=== PATIENT | female | born 1990 | race Two or more races ===

== ENCOUNTER 2018-12-28 10:20 | Observation (INO) | payer MEDICAID ==
[~2018-12-28] VITALS: Ht 162.6 cm; Wt 110.2 kg
[2018-12-28] MEDS ORDERED: PREN-96 PO (10:58)
== END 2018-12-28 12:15 | disposition home or self-care (01) | DRG 566 ==
LOC: LDRP 10:20
PROVIDERS: ADMIT Obstetrics & Gynecology; ATTEND Obstetrics & Gynecology
DX: O48.0 Post-term pregnancy (principal); Z3A.40 40 weeks gestation of pregnancy
CPT/HCPCS: 59025; 76818; 81002; G0378

== ENCOUNTER 2018-12-30 19:06 | Observation (INO) | payer MEDICAID ==
[~2018-12-30] VITALS: Ht 162.6 cm; Wt 111.1 kg
[~2018-12-30 19:06] MED LIST: PREN-96 PO
== END 2018-12-30 20:40 | disposition home or self-care (01) | DRG 566 ==
LOC: LDRP 19:06
PROVIDERS: ADMIT Specialist; ATTEND Specialist
DX: O48.0 Post-term pregnancy (principal); O24.313 Unspecified pre-existing diabetes mellitus in pregnancy, third trimester; O46.93 Antepartum hemorrhage, unspecified, third trimester; Z3A.40 40 weeks gestation of pregnancy
CPT/HCPCS: 59025; 76818; 81002; G0378

== ENCOUNTER 2019-01-01 22:16 | Inpatient (IN) | payer MEDICAID ==
[~2019-01-01] VITALS: Ht 152.4 cm; Wt 110.2 kg
[2019-01-01] MEDS ORDERED: LACT. RINGERS/OXYTOCIN 20UNITS 1,000 ML IV SCH (22:46)
[2019-01-01] MEDS ORDERED: NALBUPHINE HCL 10 MG/1ml INJECTION IV PRN (23:00)
[2019-01-01] MEDS ORDERED: DERMOPLAST 60ML BOTTLE TOP PRN (23:00)
[2019-01-01] MEDS ORDERED: WITCH HAZEL-GLYCERIN PAD TOP PRN (23:00)
[2019-01-01] MEDS ORDERED: METHYLERGONOVINE MALEATE 0.2 MG/ML AMP IM PRN (23:00)
[2019-01-01] MEDS ORDERED: LIDOCAINE 2%HCL (LOCAL ANESTH.) INJ 20ML MDV ID ONE (23:00)
[2019-01-01] MEDS ORDERED: PHISODERM TOP SOLN 240ML BTL TOP PRN (23:00)
[2019-01-01] MEDS: LACTATED RINGER'S 1,000 ML IV SCH (23:50)
[2019-01-02] MEDS ORDERED: PENICILLIN G POT 5MIL/D5 50ML 50 ML IV ONE ×2 (00:30→04:15)
[2019-01-02 04:31] LABS: Albumin 2.8 g/dL (3.4-5.0); Alcohol, Urine < 3.0 mg/dL (0-5); Amphetamine Screen, Urine NEGATIVE (NEGATIVE); Barbiturate Scree,Urine NEGATIVE (NEGATIVE); Benzodiazephine Screen, Urine NEGATIVE (NEGATIVE); Bilirubin, Total 0.2 mg/dL (0.2-1.0); Calcium 8.8 mg/dL (8.5-10.1); Cannabinoid Screen, Urine NEGATIVE (NEGATIVE); Cocaine Screen, Urine NEGATIVE (NEGATIVE); Opiate Scree,Urine NEGATIVE (NEGATIVE); Phencyclidine Screen, Urine NEGATIVE (NEGATIVE); Potassium 3.6 mmol/L (3.5-5.1); Total Protein 7.4 g/dL (6.4-8.2)
[2019-01-02 04:32] LABS: Basophils # (auto) 0 uL; Basophils % (auto) 0.4 % (0.0-2.0); Eosinophils # (auto) 0.2 uL; Eosinophils % (auto) 2.1 % (0.0-7.0); Hematocrit 37.4 % (36.0-46.0); Hemoglobin 12.4 g/dL (12.2-16.2); Lymphocytes # (auto) 2.4 uL; Lymphocytes % (auto) 23.2 % (10.0-50.0); Mean Corpuscular Hgb Conc. 33.2 g/dL (32.0-36.0); Mean Corpuscular Volume 90.5 fL (80.0-100.0); Monocytes # (auto) 0.5 uL; Monocytes % (auto) 4.8 % (0.0-12.0); Neutrophils # (auto) 7.2 uL; Neutrophils % (auto) 69.5 % (37.0-80.0); Nucleated Red Blood Cells % 0.1 %; Platelet Count (auto) 259 10^3/uL (140-450); Red Blood Cells 4.14 10^6/uL (4.0-5.20); Red Cell Distribution Width 15.1 % (11.8-14.3); White Blood Cell 10.3 10^3/uL (4.4-10.8)
[2019-01-02] MEDS ORDERED: PENICILLIN G POT 5MILLION UNIT VIAL ONE (04:33)
[2019-01-02] MEDS ORDERED: STERILE WATER 10 ML ONE (04:35)
[2019-01-02] MEDS: PENICILLIN G POTASSIUM 2,500,000 UNITS in D5W 5% 50 ML IV SCH ×5 (04:40→21:55)
[2019-01-02 05:04] LABS: INR 0.87 (0.9-1.15); Partial Thromboplastin Time 31.3 sec (23.78-33.04); Prothrombin Time 9.4 sec (9.27-12.13)
[2019-01-02 07:01] LABS: Urine Bacteria FEW /hpf (None Seen); Urine Blood Negative /uL (Negative); Urine Specific Gravity 1.015 (1.001-1.035); Urine WBC <1 /hpf (0 - 5)
[2019-01-02] MEDS ORDERED: TERBUTALINE SULFATE 1 MG/ML 1ML VIAL SC ONE ×3 (14:30→21:30)
[2019-01-02] MEDS: LACTATED RINGER'S 1,000 ML IV SCH ×3 (19:21→22:46)
[2019-01-02] MEDS ORDERED: LACT. RINGERS/OXYTOCIN 20UNITS 1,000 ML IV SCH (21:30)
[2019-01-02] MEDS ORDERED: fentaNYL CITRATE 100 MCG/2 ML VL IV ONE (23:45)
[2019-01-02] MEDS ORDERED: ePHEDrine SULFATE 50 MG/ML AMP IV ONE (23:45)
[2019-01-02] MEDS ORDERED: LIDOCAINE HCL 2 %PF INJ 10ML AMP IJ ONE (23:45)
[2019-01-02] MEDS ORDERED: NALOXONE HCL 0.4 MG/ML VIAL IV ONE (23:45)
[2019-01-02] MEDS ORDERED: LIDOCAINE W/ EPINEPHRINE 1% 20ML VIAL IJ ONE (23:45)
[2019-01-02] MEDS ORDERED: fentaNYL W ROPIVACAINE 150 ML EPI SCH (23:45)
[2019-01-03] MEDS ORDERED: LIDOCAINE W/ EPINEPHRINE 1 % INJ 30ML ONE (00:15)
[2019-01-03] MEDS ORDERED: LIDOCAINE IJ ONE (00:15)
[2019-01-03] MEDS ORDERED: EPINEPHRINE IJ ONE (00:15)
[2019-01-03] MEDS ORDERED: BUTORPHANOL TARTRATE 2 MG/1 ML VIAL IV ONE (01:45)
[2019-01-03] MEDS ORDERED: BUTORPHANOL TARTRATE 2 MG/1 ML VIAL ONE (01:49)
[2019-01-03] MEDS: PENICILLIN G POTASSIUM 2,500,000 UNITS in D5W 5% 50 ML IV SCH (01:54)
[2019-01-03] MEDS ORDERED: ACETAMINOPHEN 325 MG TAB PO PRN (04:30)
[2019-01-03] MEDS: IBUPROFEN 600 MG TAB PO PRN ×2 (04:55→17:57)
--- NOTE | 2019-01-03 05:25 | NUR ---
Ambulation: Patient OOB with standby assistance by RN. Patient ambulated to bathroom with steady gait. Patient able to void without difficulty. [facility] teaching provided with returned demonstration by patient. Clean gown provided and bed linen changed. Patient ambulated back to bed with steady gait and no distress noted.
[2019-01-03 06:43] VITALS: BP 106/57
[2019-01-03 10:50] VITALS: BP 113/55
[2019-01-03 15:00] VITALS: BP 107/66
[2019-01-03 19:00] VITALS: BP 130/74
[2019-01-03 23:20] VITALS: BP 111/68
[2019-01-04 03:00] VITALS: BP 118/69
[2019-01-04] MEDS: IBUPROFEN 600 MG TAB PO PRN (04:54)
[2019-01-04 06:35] VITALS: BP 108/55
--- NOTE | 2019-01-04 08:35 | NUR ---
Discharge: Discharge instructions given as ordered. Pt encouraged to follow up with [facility] as instructed. All questions and concerns addressed. Patient verbalized understanding. Medication reconciliation completed and copy given to patient. Patient refused t-dap and influenza. Patient encouraged to prepare to depart unit.
--- NOTE | 2019-01-04 11:23 | NUR ---
PATIENT STATES SHE IS WAITING FOR HER RIDE TO PICK HER AND BABY UP.
[2019-01-04 11:30] VITALS: BP 105/56
--- NOTE | 2019-01-04 12:25 | NUR ---
Discharge: Patient taken to vehicle via wheelchair with all personal belongings, accompanied by staff and family member. No distress noted at time of departure, no adverse changes in status since initial assessment.
== END 2019-01-04 12:25 | disposition home or self-care (01) | DRG 560 ==
LOC: LDRP 22:16
PROVIDERS: ADMIT Specialist; ATTEND Specialist
PROC: 10907ZC Drainage of Amniotic Fluid, Therapeutic from Products of Conception, Via Natural or Artificial Opening (ICD-10-PCS; principal; 2019-01-03)
PROC: 10E0XZZ Delivery of Products of Conception, External Approach (ICD-10-PCS; 2019-01-03)
PROC: 3E033VJ Introduction of Other Hormone into Peripheral Vein, Percutaneous Approach (ICD-10-PCS; 2019-01-03)
DX: O48.0 Post-term pregnancy (principal); O99.824 Streptococcus B carrier state complicating childbirth; Z37.0 Single live birth; Z3A.40 40 weeks gestation of pregnancy
CPT/HCPCS: 36415; 59025; 59409; 80053; 80307; 81001; 85025; 85610; 85730; 86592; 86850; 86900; 86901; 96361; 96365; 96366; 96372; 96374; G0378; J2540; J2590; J3010; J7060

== ENCOUNTER 2020-02-08 15:27 | Emergency (ER) | payer MEDICAID ==
[~2020-02-08] VITALS: Ht 162.6 cm; Wt 104.3 kg
[2020-02-08 16:04] VITALS: BP 156/86
== END 2020-02-08 17:07 | disposition home or self-care (01) ==
LOC: ER 15:27
DX: J20.9 Acute bronchitis, unspecified (principal)
CPT/HCPCS: 71046

== ENCOUNTER 2020-07-09 10:02 | Emergency (ER) | payer MEDICAID, OTHER ==
[~2020-07-09] VITALS: Ht 162.6 cm; Wt 110.7 kg
[2020-07-09 10:09] VITALS: BP 142/91
[2020-07-09] MEDS ORDERED: IBUPROFEN 800 MG TAB PO ONE (11:15)
== END 2020-07-09 11:35 | disposition home or self-care (01) ==
LOC: ER 10:02
DX: S20.211A Contusion of right front wall of thorax, initial encounter (principal); V43.62XA Car passenger injured in collision with other type car in traffic accident, initial encounter; Y93.I9 Activity, other involving external motion; Y92.488 Other paved roadways as the place of occurrence of the external cause; Y99.8 Other external cause status